=== PATIENT | female | born 1940 | race African-American/Black ===

== ENCOUNTER 2016-10-17 10:37 | Emergency (ER) | payer MEDICARE, BC ==
[~2016-10-17] VITALS: Ht 160 cm; Wt 64.0 kg
[~2016-10-17 10:37] MED LIST: ALPR-340 PO; AMLO10TA80 PO; BENA40TA3 PO; DIAZ5TAB4 PO; EDARBI; NEBI5TAB3 PO; QUET25TA PO
[2016-10-17 11:56] VITALS: BP 134/72
== END 2016-10-17 14:23 | disposition home or self-care (01) ==
LOC: ER 13:25
DX: I10 Essential (primary) hypertension (principal); R51 Headache; Z96.659 Presence of unspecified artificial knee joint
CPT/HCPCS: 99283

== ENCOUNTER 2017-03-04 14:08 | Emergency (ER) | payer MEDICARE, BC ==
[~2017-03-04] VITALS: Ht 160 cm; Wt 60.0 kg
[2017-03-04] MEDS ORDERED: TRAMADOL 50MG TABLET PO ONE (14:45)
[2017-03-04 15:17] LABS: HEMATOCRIT. 38.2 % (36.0-48.0); HEMOGLOBIN. 13.2 g/dL (12.0-16.0); MEAN CORPUSCULAR VOLUME 92.8 fL (81.0-99.0); PLATELET 467 x1000/uL (130-400); RED BLOOD CELL COUNT 4.12 mill/uL (4.2-5.4); RED CELL DISTRIBUTION WIDTH 13.4 % (11.6-14.6)
[2017-03-04 15:20] LABS: CARBON DIOXIDE 28 mEq/L (21-32); CHLORIDE 105 mEq/L (98-107)
[2017-03-04 17:05] LABS: ATYPICAL LYMPHOCYTES 3; PLATELET ESTIMATE SLIGHTLY INCREASED
[2017-03-04 17:40] VITALS: BP 139/78
== END 2017-03-04 19:41 | disposition home or self-care (01) ==
LOC: ER 15:30
DX: M17.11 Unilateral primary osteoarthritis, right knee (principal); R35.0 Frequency of micturition; I10 Essential (primary) hypertension; M19.90 Unspecified osteoarthritis, unspecified site; F41.9 Anxiety disorder, unspecified; Z96.652 Presence of left artificial knee joint
CPT/HCPCS: 36415; 73560; 80053; 82962; 85025; 99285

== ENCOUNTER 2017-06-02 11:22 | Emergency (ER) | payer MEDICARE, BC ==
[~2017-06-02] VITALS: Ht 157.5 cm; Wt 61.0 kg
[2017-06-02 11:40] VITALS: BP 147/69
[2017-06-02] MEDS ORDERED: ACETAMINOPHEN 500MG TABLET PO ONE (15:45)
== END 2017-06-02 18:22 | disposition home or self-care (01) ==
LOC: ER 12:43
DX: M17.11 Unilateral primary osteoarthritis, right knee (principal); I10 Essential (primary) hypertension; F03.90 Unspecified dementia, unspecified severity, without behavioral disturbance, psychotic disturbance, mood disturbance, and anxiety; Z96.652 Presence of left artificial knee joint
CPT/HCPCS: 73562; 99284

== ENCOUNTER 2017-06-09 08:47 | Emergency (ER) | payer MEDICARE, BC ==
[~2017-06-09] VITALS: Ht 157.5 cm; Wt 61.0 kg
[2017-06-09] MEDS ORDERED: IBUPROFEN 600MG TABLET PO ONE (11:00)
[2017-06-09 11:17] LABS: CLARITY URINE CLEAR (CLEAR); COLOR URINE YELLOW (YELLOW); GLUCOSE URINE NEGATIVE (NEGATIVE); KETONES URINE NEGATIVE (NEGATIVE); LEUKOCYTE ESTERASE URINE NEGATIVE (NEGATIVE); NITRITE URINE NEGATIVE (NEGATIVE); OCCULT BLOOD URINE NEGATIVE (NEGATIVE); PROTEIN URINE NEGATIVE (NEGATIVE); SPECIFIC GRAVITY URINE 1.013 (1.005-1.030)
[2017-06-09] MEDS ORDERED: CLONIDINE 0.1MG TABLET PO ONE (11:45)
[2017-06-09 12:48] VITALS: BP 165/82
== END 2017-06-09 12:54 | disposition home or self-care (01) ==
LOC: ER 09:32
DX: M17.11 Unilateral primary osteoarthritis, right knee (principal); G89.29 Other chronic pain; I16.0 Hypertensive urgency; I11.9 Hypertensive heart disease without heart failure
CPT/HCPCS: 81003; 99283

== ENCOUNTER 2017-10-08 12:56 | Inpatient (IN) | payer MEDICARE, BC ==
[~2017-10-08] VITALS: Ht 157.5 cm; Wt 51.9 kg
[~2017-10-08 12:56] MED LIST changes: -ALPR-340 PO; -AMLO10TA80 PO; +AZIL40TA PO; -BENA40TA3 PO; -DIAZ5TAB4 PO; -EDARBI; +KDUR10 PO; +NAPR-681 PO; -NEBI5TAB3 PO; +NITR100C11 PO; -QUET25TA PO; +TRAM50TA3 PO
[2017-10-08 15:38] LABS: BASOPHILS % 1.2 % (0.0-2.0); EOSINOPHILS % 1.8 % (0.0-5.0); HEMATOCRIT. 39.3 % (36.0-48.0); HEMOGLOBIN. 13.6 g/dL (12.0-16.0); LYMPHOCYTES % 15.4 % (20.0-50.0); MEAN CORPUSCULAR HEMOGLOBIN 32.6 pg (28.0-32.0); MEAN CORPUSCULAR VOLUME 94.7 fL (81.0-99.0); MEAN PLATELET VOLUME 8.4 fl (7.4-10.4); MONOCYTES % 7.6 % (2.0-8.0); PLATELET 493 x1000/uL (130-400); RED BLOOD CELL COUNT 4.16 mill/uL (4.2-5.4); RED CELL DISTRIBUTION WIDTH 13.7 % (11.6-14.6)
[2017-10-08 15:40] LABS: CHLORIDE 106 mEq/L (98-107)
[2017-10-08 15:44] LABS: INR 1.1; PARTIAL THROMBOPLASTIN TIME 29.2 sec (23.4-31.0); PROTHROMBIN TIME 10.9 sec (9.4-11.6)
[2017-10-08 15:49] LABS: CREATINE KINASE 22 IU/L (26-192)
[2017-10-08 15:51] LABS: CREATINE KINASE MB FRACTION < 0.5 ng/mL (0.5-3.6)
[2017-10-08] MEDS ORDERED: ASPIRIN 81MG TABLET PO ONE (16:00)
[2017-10-08] MEDS ORDERED: ENALAPRIL 2.5MG/2ML VIAL 2ML IV ONE (16:00)
[2017-10-08] MEDS ORDERED: CLONIDINE 0.1MG TABLET PO PRN ×2 (17:00→21:23)
[2017-10-08 17:23] LABS: CLARITY URINE CLOUDY (CLEAR); COLOR URINE YELLOW (YELLOW); KETONES URINE NEGATIVE (NEGATIVE); LEUKOCYTE ESTERASE URINE 1+ (NEGATIVE); NITRITE URINE NEGATIVE (NEGATIVE); OCCULT BLOOD URINE NEGATIVE (NEGATIVE); PH URINE 7.5 (4.5-8.0); PROTEIN URINE NEGATIVE (NEGATIVE); SPECIFIC GRAVITY URINE 1.012 (1.005-1.030)
[2017-10-08 21:00] VITALS: BP 143/71
[2017-10-08 21:05] VITALS: BP 143/71
[2017-10-08] MEDS ORDERED: DIPHENHYDRAMINE 25MG CAPSULE PO PRN (21:17)
[2017-10-08] MEDS ORDERED: NITROGLYCERIN 0.4MG TABLET SL SL PRN (21:24)
[2017-10-08] MEDS ORDERED: TRAMADOL 50MG TABLET PO PRN (21:25)
[2017-10-08] MEDS ORDERED: ZOLPIDEM TARTRATE 5MG TABLET PO PRN (21:25)
[2017-10-08] MEDS ORDERED: MORPHINE SULFATE 4 MG/ML CPJ (NOT FOR IM USE) IV PRN (21:25)
[2017-10-08] MEDS ORDERED: ACETAMINOPHEN 325MG TABLET PO PRN (21:26)
[2017-10-08] MEDS ORDERED: MAGNESIUM/ALUMINUM HYDROXIDE/SIMETHICONE 30ML UDC PO PRN (21:26)
[2017-10-08] MEDS ORDERED: ONDANSETRON HCL 4MG/2ML VIAL IV PRN (21:26)
[2017-10-08] MEDS ORDERED: NA PHOS,M-B/NA PHOS,DI-BA ENEMA 118ML PR PRN (21:26)
[2017-10-08] MEDS ORDERED: DOCUSATE SODIUM 100MG CAPSULE PO PRN (21:27)
[2017-10-08] MEDS ORDERED: IPRATROPIUM/ALBUTEROL 0.5-3(2.5)MG/3ML NEB INH PRN (21:27)
[2017-10-08] MEDS: HYDRALAZINE HCL 50MG TABLET PO SCH (21:58)
[2017-10-08] MEDS: LISINOPRIL 20MG TABLET PO SCH (21:59)
[2017-10-08] MEDS ORDERED: CEFTRIAXONE 1 G PREMIX 50 ML IV SCH (23:00)
[2017-10-09] VITALS: BP 123/72
[2017-10-09 04:00] VITALS: BP 125/68
[2017-10-09] MEDS: HYDRALAZINE HCL 50MG TABLET PO SCH (05:38)
[2017-10-09 07:15] LABS: BASOPHILS % 0.7 % (0.0-2.0); EOSINOPHILS % 1.5 % (0.0-5.0); HEMATOCRIT. 35.2 % (36.0-48.0); HEMOGLOBIN. 12.1 g/dL (12.0-16.0); MEAN CORPUSCULAR HEMOGLOBIN 32.7 pg (28.0-32.0); MEAN CORPUSCULAR VOLUME 95.3 fL (81.0-99.0); MEAN PLATELET VOLUME 8.8 fl (7.4-10.4); MONOCYTES % 8.2 % (2.0-8.0); NEUTROPHILS % 75.6 % (40.0-76.0); PLATELET 430 x1000/uL (130-400); RED CELL DISTRIBUTION WIDTH 13.7 % (11.6-14.6)
[2017-10-09 08:00] VITALS: BP 106/52
[2017-10-09] MEDS ORDERED: ENOXAPARIN 40MG/0.4ML SYR SUBCUT SCH (09:00)
[2017-10-09] MEDS ORDERED: PANTOPRAZOLE SODIUM 40 MG/VIAL IV SCH (09:00)
[2017-10-09] MEDS: LISINOPRIL 20MG TABLET PO SCH (09:00)
[2017-10-09] MEDS ORDERED: ASPIRIN 325MG EC TABLET PO SCH (09:00)
[2017-10-09 09:02] LABS: CHLORIDE 106 mEq/L (98-107)
[2017-10-09 09:10] LABS: LDL CHOLESTEROL 78 mg/dL (5-100)
[2017-10-09 09:12] LABS: CREATINE KINASE 23 IU/L (26-192); CREATINE KINASE MB FRACTION < 0.5 ng/mL (0.5-3.6)
[2017-10-09 09:13] LABS: HDL CHOLESTEROL 40 mg/dL (40-59)
[2017-10-09] MEDS ORDERED: NON FORMULARY PATIENT HOME MED EA XX SCH (09:15)
[2017-10-09] MEDS ORDERED: POTASSIUM CHLORIDE 20MEQ TABLET SR PO SCH (09:15)
[2017-10-09 11:44] VITALS: BP 136/64
[2017-10-09 12:00] VITALS: BP 136/64
[2017-10-09] MEDS ORDERED: ZOLPIDEM TARTRATE 5MG TABLET PO PRN (21:00)
== END 2017-10-09 12:29 | disposition home or self-care (01) | DRG 392 ==
LOC: ER 12:56 → 7WST 16:51 → SUPCPDRO 16:53 → ENRESERV 18:26
PROVIDERS: ADMIT Internal Medicine; ATTEND Internal Medicine
DX: K21.9 Gastro-esophageal reflux disease without esophagitis (principal); F03.90 Unspecified dementia, unspecified severity, without behavioral disturbance, psychotic disturbance, mood disturbance, and anxiety; N12 Tubulo-interstitial nephritis, not specified as acute or chronic; E87.6 Hypokalemia; I25.10 Atherosclerotic heart disease of native coronary artery without angina pectoris; G47.00 Insomnia, unspecified; I10 Essential (primary) hypertension; M19.90 Unspecified osteoarthritis, unspecified site; Z96.659 Presence of unspecified artificial knee joint; Z90.49 Acquired absence of other specified parts of digestive tract; R79.89 Other specified abnormal findings of blood chemistry; Z79.899 Other long term (current) drug therapy
CPT/HCPCS: 36415; 74022; 80053; 80061; 81003; 82550; 82553; 83036; 83690; 83735; 83880; 84484; 85025; 85379; 85610; 85730; 87086; 93005; 93970; 96374; 97162; 99291; C9113; J0696; J1650; J3490; Q0163

== ENCOUNTER 2018-03-09 16:53 | Emergency (ER) | payer MEDICARE, BC ==
[~2018-03-09] VITALS: Ht 160 cm; Wt 73.0 kg
[~2018-03-09 16:53] MED LIST changes: +AMLO2.5T45 PO; -AZIL40TA PO; +MEMA10TA2 PO; -NAPR-681 PO; +NEBI5TAB3 PO; -NITR100C11 PO; +OLME20TA14 PO; +PRAV40TA58 PO; +SOLI5TAB PO
[2018-03-09] MEDS ORDERED: SODIUM CHLORIDE 0.9% 500 ML IV ONE (17:43)
[2018-03-09] MEDS ORDERED: LORAZEPAM 0.5MG TABLET PO ONE (17:45)
[2018-03-09 18:40] LABS: BASOPHILS % 1.1 % (0.0-2.0); EOSINOPHILS % 0.9 % (0.0-5.0); HEMOGLOBIN. 12.8 g/dL (12.0-16.0); LYMPHOCYTES % 22.3 % (20.0-50.0); MEAN CORPUSCULAR HEMOGLOBIN 33.4 pg (28.0-32.0); MEAN PLATELET VOLUME 8.6 fl (7.4-10.4); MONOCYTES % 6.8 % (2.0-8.0); NEUTROPHILS % 68.9 % (40.0-76.0); PLATELET 570 x1000/uL (130-400); RED BLOOD CELL COUNT 3.83 mill/uL (4.2-5.4); RED CELL DISTRIBUTION WIDTH 13.4 % (11.6-14.6)
[2018-03-09 18:44] LABS: CHLORIDE 104 mEq/L (98-107)
[2018-03-09] MEDS ORDERED: POTASSIUM CHLORIDE 20MEQ TABLET SR PO ONE (19:15)
[2018-03-09 19:56] LABS: CLARITY URINE CLEAR (CLEAR); COLOR URINE YELLOW (YELLOW); KETONES URINE NEGATIVE (NEGATIVE); LEUKOCYTE ESTERASE URINE 2+ (NEGATIVE); NITRITE URINE NEGATIVE (NEGATIVE); OCCULT BLOOD URINE NEGATIVE (NEGATIVE); PH URINE 6.5 (4.5-8.0); PROTEIN URINE NEGATIVE (NEGATIVE); SPECIFIC GRAVITY URINE 1.008 (1.005-1.030); UROBILINOGEN URINE 0.2 E.U./dL (0.2-1.0)
[2018-03-09] MEDS ORDERED: CEFTRIAXONE 1 G PREMIX 50 ML IV ONE (20:15)
[2018-03-09 21:56] VITALS: BP 179/74
== END 2018-03-09 22:01 | disposition home or self-care (01) ==
LOC: ER 16:53
DX: N39.0 Urinary tract infection, site not specified (principal); E86.0 Dehydration; E87.6 Hypokalemia; F03.90 Unspecified dementia, unspecified severity, without behavioral disturbance, psychotic disturbance, mood disturbance, and anxiety; R41.3 Other amnesia; Z79.899 Other long term (current) drug therapy
CPT/HCPCS: 36415; 71045; 80053; 81003; 83735; 84484; 85025; 93005; 96361; 96365; 96366; 99285; J0696; J7030; J7040

== ENCOUNTER 2018-09-13 13:58 | Emergency (ER) | payer BC, MEDICARE ==
[~2018-09-13] VITALS: Ht 160 cm; Wt 59.0 kg
[~2018-09-13 13:58] MED LIST changes: +NAPR-681 MT; +NITR100C MT; +QUET25TA34 MT; -SOLI5TAB PO; -TRAM50TA3 PO
[2018-09-13 18:13] VITALS: BP 131/78
== END 2018-09-13 21:13 | disposition left against medical advice (07) ==
LOC: ER 13:58
DX: M25.561 Pain in right knee (principal); M54.5 Low back pain; Z53.21 Procedure and treatment not carried out due to patient leaving prior to being seen by health care provider

== ENCOUNTER 2018-10-29 16:29 | Inpatient (IN) | payer MEDICARE, BC ==
[~2018-10-29] VITALS: Ht 160 cm; Wt 59.0 kg
[2018-10-29 17:13] LABS: BASOPHILS % 1.1 % (0.0-2.0); EOSINOPHILS % 0.4 % (0.0-5.0); HEMATOCRIT. 38.8 % (36.0-48.0); HEMOGLOBIN. 13.5 g/dL (12.0-16.0); LYMPHOCYTES % 13.5 % (20.0-50.0); MEAN CORPUSCULAR HEMOGLOBIN 32.1 pg (28.0-32.0); MEAN PLATELET VOLUME 7.8 fl (7.4-10.4); MONOCYTES % 6.8 % (2.0-8.0); NEUTROPHILS % 78.2 % (40.0-76.0); PLATELET 700 x1000/uL (130-400); RED BLOOD CELL COUNT 4.22 mill/uL (4.2-5.4); RED CELL DISTRIBUTION WIDTH 14.8 % (11.6-14.6)
[2018-10-29 17:18] LABS: CHLORIDE 106 mEq/L (98-107)
[2018-10-29 17:54] LABS: BG BASE EXCESS 0.3 mmol/L (-2.0-2.0); BG CARBOXYHEMOGLOBIN 0.3 % (0.5-1.5); BG DEOXYHEMOGLOBIN 1.9 % (0.0-5.0); BG FRACTION INSPIRED OXYGEN 21; BG HCO3 ACT 17.8 mmol/L (22.0-26.0); BG METHEMOGLOBIN 0.3 % (0.0-1.5); BG OXYGEN SATURATION 98.1 % (92.0-98.5); BG OXYHEMOGLOBIN 97.5 % (94.0-97.0); BG PCO2 15.7 mmHg (35.0-45.0); BG PH 7.672 (7.350-7.450); BG PO2 100.4 mmHg (75.0-100.0); BG SAMPLE SITE RIGHT BRACHIAL; BG TOTAL HEMOGLOBIN 13.5 g/dL (12.0-18.0); BG VENT MODE ROOM AIR
[2018-10-29] MEDS ORDERED: LORAZEPAM 2MG/ML CPJ IV ONE (18:00)
[2018-10-29] MEDS ORDERED: SODIUM CHLORIDE 0.9% 500 ML IV ONE (19:30)
[2018-10-29] MEDS ORDERED: IOHEXOL-300 100 ML BOTTLE ONE (19:31)
[2018-10-29] MEDS ORDERED: GUAIFENESIN 200MG/10ML SUGAR FREE UDC PO PRN (20:15)
[2018-10-29] MEDS ORDERED: DOCUSATE SODIUM 100MG CAPSULE PO PRN (20:15)
[2018-10-29] MEDS ORDERED: HYDROCODONE/ACETAMINOPHEN 5/325MG TABLET PO PRN (20:15)
[2018-10-29] MEDS ORDERED: CLONIDINE 0.1MG TABLET PO PRN (20:15)
[2018-10-29] MEDS ORDERED: MAGNESIUM/ALUMINUM HYDROXIDE/SIMETHICONE 30ML UDC PO PRN (20:15)
[2018-10-29] MEDS ORDERED: ONDANSETRON HCL 4MG/2ML INJ IV PRN (20:15)
[2018-10-29] MEDS ORDERED: LORAZEPAM 2MG/ML CPJ IV PRN (20:15)
[2018-10-29] MEDS ORDERED: ACETAMINOPHEN 325MG TABLET PO PRN (20:15)
[2018-10-29] MEDS ORDERED: AMLODIPINE 2.5MG TABLET PO NR (20:30)
[2018-10-29] MEDS ORDERED: MEMANTINE HCL 10MG TABLET PO NR (20:31)
[2018-10-29] MEDS ORDERED: POTASSIUM CHLORIDE 20MEQ TABLET SR PO NR (20:32)
[2018-10-29] MEDS ORDERED: DIAZEPAM 5 MG TABLET PO ONE (20:45)
[2018-10-29 22:00] VITALS: BP 152/80
[2018-10-29] MEDS ORDERED: NA PHOS,M-B/NA PHOS,DI-BA ENEMA 118ML PR PRN (22:00)
[2018-10-29 23:05] LABS: CLARITY URINE CLEAR (CLEAR); COLOR URINE YELLOW (YELLOW); KETONES URINE TRACE (NEGATIVE); LEUKOCYTE ESTERASE URINE NEGATIVE (NEGATIVE); NITRITE URINE NEGATIVE (NEGATIVE); OCCULT BLOOD URINE NEGATIVE (NEGATIVE); PH URINE 7.5 (4.5-8.0); PROTEIN URINE NEGATIVE (NEGATIVE); SPECIFIC GRAVITY URINE 1.059 (1.005-1.030)
[2018-10-30] VITALS: BP 127/87
[2018-10-30] MEDS ORDERED: DEXTROSE 50% WATER 50ML SYRINGE IV PRN (01:15)
[2018-10-30 04:00] VITALS: BP 141/74
[2018-10-30] MEDS: BLOOD SUGAR DIAGNOSTIC STRIP TEST SCH ×4 (06:58→21:00)
[2018-10-30] MEDS: INSULIN LISPRO 100 UNITS/ML SUBCUT SCH ×4 (06:58→21:18)
[2018-10-30 06:59] LABS: HEMATOCRIT. 35.6 % (36.0-48.0); HEMOGLOBIN. 12.3 g/dL (12.0-16.0); MEAN CORPUSCULAR HEMOGLOBIN 32.2 pg (28.0-32.0); MEAN PLATELET VOLUME 7.8 fl (7.4-10.4); MONOCYTES % 7.3 % (2.0-8.0); NEUTROPHILS % 74.7 % (40.0-76.0); PLATELET 570 x1000/uL (130-400); RED BLOOD CELL COUNT 3.83 mill/uL (4.2-5.4); RED CELL DISTRIBUTION WIDTH 14.8 % (11.6-14.6)
[2018-10-30 07:24] LABS: CHLORIDE 112 mEq/L (98-107)
[2018-10-30 08:00] VITALS: BP 137/78
[2018-10-30] MEDS ORDERED: AMLODIPINE 2.5MG TABLET PO SCH (09:00)
[2018-10-30] MEDS: QUETIAPINE FUMARATE 25MG TABLET PO SCH (09:54)
[2018-10-30] MEDS: MEMANTINE HCL 10MG TABLET PO SCH ×2 (09:54→20:57)
[2018-10-30] MEDS: ENOXAPARIN 30MG/0.3ML SYR SUBCUT SCH (09:56)
[2018-10-30] MEDS: POTASSIUM CHLORIDE 20MEQ TABLET SR PO SCH (09:56)
[2018-10-30] MEDS ORDERED: POTASSIUM CHLORIDE 20MEQ TABLET SR PO NR (10:15)
[2018-10-30 10:49] LABS: BG BASE EXCESS 1.7 mmol/L (-2.0-2.0); BG CARBOXYHEMOGLOBIN 0.3 % (0.5-1.5); BG FRACTION INSPIRED OXYGEN 21; BG METHEMOGLOBIN 0.6 % (0.0-1.5); BG OXYHEMOGLOBIN 96.1 % (94.0-97.0); BG PCO2 30.8 mmHg (35.0-45.0); BG PO2 95.4 mmHg (75.0-100.0); BG SAMPLE SITE RIGHT RADIAL; BG TOTAL HEMOGLOBIN 12.6 g/dL (12.0-18.0); BG VENT MODE ROOM AIR
[2018-10-30] MEDS ORDERED: METHYL SALICYLATE/MENTHOL CREAM 85GM TOP PRN (12:00)
[2018-10-30] MEDS ORDERED: IPRATROPIUM/ALBUTEROL 0.5-3(2.5)MG/3ML NEB HHN PRN (13:15)
[2018-10-30 16:00] VITALS: BP 144/59
[2018-10-30 17:21] LABS: CLARITY URINE CLEAR (CLEAR); COLOR URINE YELLOW (YELLOW); KETONES URINE NEGATIVE (NEGATIVE); LEUKOCYTE ESTERASE URINE NEGATIVE (NEGATIVE); NITRITE URINE NEGATIVE (NEGATIVE); OCCULT BLOOD URINE NEGATIVE (NEGATIVE); PH URINE 7.5 (4.5-8.0); PROTEIN URINE NEGATIVE (NEGATIVE)
[2018-10-30] MEDS: NAPROXEN 375MG TABLET PO SCH (17:52)
[2018-10-30 20:00] VITALS: BP_SYST 143; BP_SYST 146; BP_DIAS 65; BP_DIAS 75
[2018-10-30] MEDS: AMLODIPINE 5MG TABLET PO SCH (20:58)
[2018-10-31] VITALS: BP 146/75
[2018-10-31 04:00] VITALS: BP 145/76
[2018-10-31] MEDS: BLOOD SUGAR DIAGNOSTIC STRIP TEST SCH ×4 (06:08→20:39)
[2018-10-31] MEDS: INSULIN LISPRO 100 UNITS/ML SUBCUT SCH ×4 (06:45→20:39)
[2018-10-31 07:05] LABS: BASOPHILS % 1.4 % (0.0-2.0); EOSINOPHILS % 2.8 % (0.0-5.0); HEMATOCRIT. 36.3 % (36.0-48.0); HEMOGLOBIN. 12.7 g/dL (12.0-16.0); LYMPHOCYTES % 23.9 % (20.0-50.0); MEAN CORPUSCULAR HEMOGLOBIN 32.5 pg (28.0-32.0); MEAN CORPUSCULAR VOLUME 92.8 fL (81.0-99.0); MEAN PLATELET VOLUME 7.9 fl (7.4-10.4); MONOCYTES % 7.8 % (2.0-8.0); NEUTROPHILS % 64.1 % (40.0-76.0); PLATELET 575 x1000/uL (130-400); RED BLOOD CELL COUNT 3.91 mill/uL (4.2-5.4); RED CELL DISTRIBUTION WIDTH 14.6 % (11.6-14.6)
[2018-10-31 07:20] LABS: CHLORIDE 109 mEq/L (98-107)
[2018-10-31 08:00] VITALS: BP 151/70
[2018-10-31] MEDS: POTASSIUM CHLORIDE 20MEQ TABLET SR PO SCH (09:02)
[2018-10-31] MEDS: MEMANTINE HCL 10MG TABLET PO SCH (09:02)
[2018-10-31] MEDS: QUETIAPINE FUMARATE 25MG TABLET PO SCH (09:03)
[2018-10-31] MEDS: AMLODIPINE 5MG TABLET PO SCH ×2 (09:03→20:34)
[2018-10-31] MEDS: NAPROXEN 375MG TABLET PO SCH ×2 (09:04→17:53)
[2018-10-31] MEDS: ENOXAPARIN 30MG/0.3ML SYR SUBCUT SCH (09:05)
[2018-10-31] MEDS ORDERED: POTASSIUM CHLORIDE 20MEQ TABLET SR PO NR (10:45)
[2018-10-31 12:00] VITALS: BP 135/72
[2018-10-31] MEDS ORDERED: POTASSIUM CHLORIDE 20MEQ TABLET SR PO SCH (15:45)
[2018-10-31 16:00] VITALS: BP 135/63
[2018-10-31 20:00] VITALS: BP 139/60
[2018-11-01] VITALS: BP_SYST 130; BP_SYST 139; BP_DIAS 62; BP_DIAS 82
[2018-11-01 04:00] VITALS: BP 118/77
[2018-11-01] MEDS: INSULIN LISPRO 100 UNITS/ML SUBCUT SCH ×2 (06:23→11:57)
[2018-11-01] MEDS: BLOOD SUGAR DIAGNOSTIC STRIP TEST SCH ×2 (06:23→11:57)
[2018-11-01 07:59] LABS: CHLORIDE 112 mEq/L (98-107)
[2018-11-01 08:00] VITALS: BP 156/97
[2018-11-01] MEDS: NAPROXEN 375MG TABLET PO SCH (08:24)
[2018-11-01] MEDS: POTASSIUM CHLORIDE 20MEQ TABLET SR PO SCH (08:24)
[2018-11-01] MEDS: AMLODIPINE 5MG TABLET PO SCH (08:24)
[2018-11-01] MEDS: ENOXAPARIN 30MG/0.3ML SYR SUBCUT SCH (08:25)
[2018-11-01] MEDS ORDERED: MEMANTINE HCL 10MG TABLET PO SCH ×2 (09:00→16:30)
[2018-11-01 10:48] VITALS: BP_SYST 136; BP_SYST 156; BP_DIAS 77; BP_DIAS 97
[2018-11-01 12:00] VITALS: BP 136/77
[2018-11-01] MEDS ORDERED: QUETIAPINE FUMARATE 25MG TABLET PO SCH (21:00)
== END 2018-11-01 12:28 | disposition home health service (06) | DRG 682 ==
LOC: ER 16:29 → 8WST 19:27 → EDBEDREQ 19:35 → EDBEDREQTM 19:35 → ENRESERV 20:42 → 8WST 22:44
PROVIDERS: ADMIT Hospitalist; ATTEND Hospitalist
DX: N17.9 Acute kidney failure, unspecified (principal); J96.00 Acute respiratory failure, unspecified whether with hypoxia or hypercapnia; E87.3 Alkalosis; N39.0 Urinary tract infection, site not specified; M17.0 Bilateral primary osteoarthritis of knee; E11.649 Type 2 diabetes mellitus with hypoglycemia without coma; E78.00 Pure hypercholesterolemia, unspecified; E87.6 Hypokalemia; F03.90 Unspecified dementia, unspecified severity, without behavioral disturbance, psychotic disturbance, mood disturbance, and anxiety; F41.9 Anxiety disorder, unspecified; G89.29 Other chronic pain; I10 Essential (primary) hypertension; Z96.652 Presence of left artificial knee joint; I25.119 Atherosclerotic heart disease of native coronary artery with unspecified angina pectoris; D47.3 Essential (hemorrhagic) thrombocythemia; E78.5 Hyperlipidemia, unspecified; Z79.82 Long term (current) use of aspirin; Z79.899 Other long term (current) drug therapy; Z90.49 Acquired absence of other specified parts of digestive tract
CPT/HCPCS: 36415; 36600; 71045; 71275; 73562; 82375; 82805; 82962; 83036; 83735; 83880; 84132; 84484; 85379; 93005; 93970; 97162; 99285; J1650; J1815; J2060; J7040; Q9967

== ENCOUNTER 2019-02-09 13:42 | Emergency (ER) | payer MEDICARE, BC ==
[~2019-02-09] VITALS: Ht 160 cm; Wt 64.0 kg
[~2019-02-09 13:42] MED LIST changes: +OLME20TA13 PO; -OLME20TA14 PO
[2019-02-09 15:55] LABS: HEMATOCRIT. 37.5 % (36.0-48.0); HEMOGLOBIN. 13.5 g/dL (12.0-16.0); MEAN CORPUSCULAR HEMOGLOBIN 33.1 pg (28.0-32.0); MEAN CORPUSCULAR VOLUME 92.3 fL (81.0-99.0); MEAN PLATELET VOLUME 8.3 fl (7.4-10.4); PLATELET 612 x1000/uL (130-400); RED BLOOD CELL COUNT 4.06 mill/uL (4.2-5.4); RED CELL DISTRIBUTION WIDTH 13.9 % (11.6-14.6)
[2019-02-09 16:03] LABS: CHLORIDE 108 mEq/L (98-107)
[2019-02-09 16:29] LABS: CLARITY URINE CLEAR (CLEAR); COLOR URINE YELLOW (YELLOW); KETONES URINE NEGATIVE (NEGATIVE); LEUKOCYTE ESTERASE URINE NEGATIVE (NEGATIVE); NITRITE URINE NEGATIVE (NEGATIVE); OCCULT BLOOD URINE NEGATIVE (NEGATIVE); PH URINE 6.5 (4.5-8.0); PROTEIN URINE NEGATIVE (NEGATIVE); UROBILINOGEN URINE 0.2 E.U./dL (0.2-1.0)
[2019-02-09 16:38] LABS: PLATELET ESTIMATE INCREASED
[2019-02-09] MEDS ORDERED: POTASSIUM CHLORIDE 20MEQ/PACKET PO NR (17:15)
[2019-02-09 18:13] VITALS: BP 167/90
== END 2019-02-09 18:16 | disposition home or self-care (01) ==
LOC: ER 13:42
DX: F32.9 Major depressive disorder, single episode, unspecified (principal); E87.6 Hypokalemia; R79.89 Other specified abnormal findings of blood chemistry; D47.3 Essential (hemorrhagic) thrombocythemia; I10 Essential (primary) hypertension; E11.9 Type 2 diabetes mellitus without complications; I25.10 Atherosclerotic heart disease of native coronary artery without angina pectoris; F03.90 Unspecified dementia, unspecified severity, without behavioral disturbance, psychotic disturbance, mood disturbance, and anxiety; Z90.89 Acquired absence of other organs; Z47.1 Aftercare following joint replacement surgery
CPT/HCPCS: 36415; 71045; 83880; 84484; 93005; 99284

== ENCOUNTER 2019-02-11 18:05 | Emergency (ER) | payer MEDICARE, BC ==
[~2019-02-11] VITALS: Ht 160 cm; Wt 62.0 kg
[2019-02-11 21:56] LABS: BASOPHILS % 1.5 % (0.0-2.0); EOSINOPHILS % 3.3 % (0.0-5.0); HEMATOCRIT. 37.9 % (36.0-48.0); HEMOGLOBIN. 12.9 g/dL (12.0-16.0); LYMPHOCYTES % 20.8 % (20.0-50.0); MEAN CORPUSCULAR HEMOGLOBIN 32.1 pg (28.0-32.0); MEAN PLATELET VOLUME 8.7 fl (7.4-10.4); MONOCYTES % 7.8 % (2.0-8.0); NEUTROPHILS % 66.6 % (40.0-76.0); PLATELET 594 x1000/uL (130-400); RED BLOOD CELL COUNT 4.03 mill/uL (4.2-5.4); RED CELL DISTRIBUTION WIDTH 14.2 % (11.6-14.6)
[2019-02-11 21:59] LABS: CHLORIDE 110 mEq/L (98-107)
[2019-02-11 22:06] LABS: CLARITY URINE CLEAR (CLEAR); COLOR URINE YELLOW (YELLOW); KETONES URINE NEGATIVE (NEGATIVE); LEUKOCYTE ESTERASE URINE TRACE (NEGATIVE); NITRITE URINE NEGATIVE (NEGATIVE); OCCULT BLOOD URINE NEGATIVE (NEGATIVE); PROTEIN URINE NEGATIVE (NEGATIVE)
[2019-02-11 23:13] VITALS: BP 144/78
== END 2019-02-11 23:13 | disposition home or self-care (01) ==
LOC: ER 18:05
DX: R07.89 Other chest pain (principal)
CPT/HCPCS: 36415; 71045; 81003; 84484; 93005; 99284

== ENCOUNTER 2019-03-29 13:03 | Emergency (ER) | payer OTHER, BC ==
[~2019-03-29] VITALS: Ht 157.5 cm; Wt 61.0 kg
[2019-03-29 14:54] LABS: CHLORIDE 104 mEq/L (98-107)
[2019-03-29 14:58] LABS: BASOPHILS % 0.5 % (0.0-2.0); EOSINOPHILS % 0.5 % (0.0-5.0); HEMATOCRIT. 39.5 % (36.0-48.0); HEMOGLOBIN. 13.7 g/dL (12.0-16.0); LYMPHOCYTES % 10.1 % (20.0-50.0); MEAN CORPUSCULAR HEMOGLOBIN 32.7 pg (28.0-32.0); MEAN CORPUSCULAR VOLUME 94.7 fL (81.0-99.0); MEAN PLATELET VOLUME 8.7 fl (7.4-10.4); MONOCYTES % 6.3 % (2.0-8.0); NEUTROPHILS % 82.6 % (40.0-76.0); PLATELET 704 x1000/uL (130-400); RED BLOOD CELL COUNT 4.17 mill/uL (4.2-5.4); RED CELL DISTRIBUTION WIDTH 14.4 % (11.6-14.6)
[2019-03-29 15:04] LABS: CREATINE KINASE 88 IU/L (26-192)
[2019-03-29] MEDS ORDERED: POTASSIUM CHLORIDE 20MEQ TABLET SR PO ONE (15:30)
[2019-03-29 15:33] LABS: CLARITY URINE CLEAR (CLEAR); COLOR URINE YELLOW (YELLOW); KETONES URINE NEGATIVE (NEGATIVE); LEUKOCYTE ESTERASE URINE 2+ (NEGATIVE); NITRITE URINE NEGATIVE (NEGATIVE); OCCULT BLOOD URINE NEGATIVE (NEGATIVE); PROTEIN URINE NEGATIVE (NEGATIVE); SPECIFIC GRAVITY URINE 1.011 (1.005-1.030); UROBILINOGEN URINE 0.2 E.U./dL (0.2-1.0)
[2019-03-29 17:50] VITALS: BP 156/78
== END 2019-03-29 17:50 | disposition home or self-care (01) ==
LOC: ER 13:03
DX: N39.0 Urinary tract infection, site not specified (principal); M79.18 Myalgia, other site; I10 Essential (primary) hypertension; Z60.2 Problems related to living alone
CPT/HCPCS: 36415; 71045; 81003; 82550; 84484; 93005; 99284

== ENCOUNTER 2019-07-24 14:06 | Emergency (ER) | payer MEDICARE, BC ==
[~2019-07-24] VITALS: Ht 160 cm; Wt 57.0 kg
[2019-07-24 16:06] LABS: HEMATOCRIT. 39.4 % (36.0-48.0); HEMOGLOBIN. 13.5 g/dL (12.0-16.0); MEAN CORPUSCULAR HEMOGLOBIN 32.6 pg (28.0-32.0); MEAN CORPUSCULAR VOLUME 95.1 fL (81.0-99.0); MEAN PLATELET VOLUME 8.3 fl (7.4-10.4); PLATELET 855 x1000/uL (130-400); RED BLOOD CELL COUNT 4.14 mill/uL (4.2-5.4); RED CELL DISTRIBUTION WIDTH 14.1 % (11.6-14.6)
[2019-07-24 16:08] LABS: CHLORIDE 107 mEq/L (98-107)
[2019-07-24 17:01] VITALS: BP 133/67
[2019-07-24 17:23] LABS: PLATELET ESTIMATE INCREAS
== END 2019-07-24 17:02 | disposition home or self-care (01) ==
LOC: ER 15:06
DX: R07.89 Other chest pain (principal); I10 Essential (primary) hypertension
CPT/HCPCS: 36415; 71045; 80053; 84484; 85025; 93005; 99284

== ENCOUNTER 2019-08-16 22:20 | Emergency (ER) | payer MEDICARE, BC ==
[~2019-08-16] VITALS: Ht 160 cm; Wt 51.0 kg
[2019-08-16 22:39] VITALS: BP 125/76
== END 2019-08-17 01:03 | disposition left against medical advice (07) ==
LOC: ER 22:20
DX: R19.7 Diarrhea, unspecified (principal); Z53.21 Procedure and treatment not carried out due to patient leaving prior to being seen by health care provider

== ENCOUNTER 2020-01-12 19:30 | Inpatient (IN) | payer MEDICARE, BC ==
[~2020-01-12] VITALS: Ht 160 cm; Wt 50.3 kg
[2020-01-12] MEDS ORDERED: ONDANSETRON HCL 4MG/2ML INJ IV STA (20:33)
[2020-01-12] MEDS ORDERED: SODIUM CHLORIDE 0.9% 500 ML IV ONE ×2 (20:45→23:15)
[2020-01-12 21:56] LABS: CHLORIDE 109 mEq/L (98-107)
[2020-01-12 21:57] LABS: BASOPHILS % 0.7 % (0.0-2.0); EOSINOPHILS % 0.9 % (0.0-5.0); HEMATOCRIT. 31.9 % (36.0-48.0); HEMOGLOBIN. 11.3 g/dL (12.0-16.0); LYMPHOCYTES % 12.7 % (20.0-50.0); MEAN CORPUSCULAR HEMOGLOBIN 42.4 pg (28.0-32.0); MEAN CORPUSCULAR VOLUME 120.2 fL (81.0-99.0); MEAN PLATELET VOLUME 7.9 fl (7.4-10.4); MONOCYTES % 8.2 % (2.0-8.0); NEUTROPHILS % 77.5 % (40.0-76.0); PLATELET 232 x1000/uL (130-400); RED BLOOD CELL COUNT 2.66 mill/uL (4.2-5.4); RED CELL DISTRIBUTION WIDTH 14.5 % (11.6-14.6)
[2020-01-12 22:00] LABS: ETHANOL BLOOD < 10 mg/dL
[2020-01-12 22:12] LABS: PLATELET ESTIMATE NORMAL
[2020-01-12 22:29] LABS: CLARITY URINE CLEAR (CLEAR); COLOR URINE YELLOW (YELLOW); KETONES URINE NEGATIVE (NEGATIVE); LEUKOCYTE ESTERASE URINE NEGATIVE (NEGATIVE); NITRITE URINE NEGATIVE (NEGATIVE); OCCULT BLOOD URINE NEGATIVE (NEGATIVE); PH URINE 6.5 (4.5-8.0); PROTEIN URINE NEGATIVE (NEGATIVE)
[2020-01-12 22:41] LABS: METHADONE URINE SCREEN NEGATIVE (NEGATIVE); OPIATES URINE SCREEN NEGATIVE (NEGATIVE); PHENCYCLIDINE URINE SCREEN NEGATIVE (NEGATIVE)
[2020-01-12 22:42] LABS: *AMPHETAMINES SCREEN URINE NEGATIVE (NEGATIVE); *BARBITURATES SCREEN URINE NEGATIVE (NEGATIVE); *BENZODIAZEPINES SCREEN URINE NEGATIVE (NEGATIVE); *COCAINE SCREEN URINE NEGATIVE (NEGATIVE); CANNABINOID URINE SCREEN NEGATIVE (NEGATIVE)
[2020-01-13] MEDS ORDERED: ACETAMINOPHEN 650MG/20.3ML UDC PO ONE
[2020-01-13] MEDS ORDERED: IBUPROFEN 400MG TABLET PO ONE
[2020-01-13 05:00] VITALS: BP 164/84
[2020-01-13] MEDS ORDERED: DOCUSATE SODIUM 100MG CAPSULE PO PRN (05:00)
[2020-01-13] MEDS ORDERED: ONDANSETRON HCL 4MG/2ML INJ IV PRN (05:00)
[2020-01-13] MEDS ORDERED: GUAIFENESIN 200MG/10ML SUGAR FREE UDC PO PRN (05:00)
[2020-01-13] MEDS ORDERED: ACETAMINOPHEN 325MG TABLET PO PRN (05:00)
[2020-01-13] MEDS ORDERED: MAGNESIUM/ALUMINUM HYDROXIDE/SIMETHICONE 30ML UDC PO PRN (05:00)
[2020-01-13 05:01] VITALS: BP 167/75
[2020-01-13] MEDS: SODIUM CHLORIDE 0.45% 1,000 ML IV SCH ×2 (06:11→22:40)
[2020-01-13] MEDS: CLONIDINE 0.1MG TABLET PO PRN (06:11)
[2020-01-13 07:57] VITALS: BP 164/89
[2020-01-13] MEDS: ENOXAPARIN 30MG/0.3ML SYR SUBCUT SCH (08:13)
[2020-01-13] MEDS: MULTIVITAMINS,THER W-MINERALS TABLET PO SCH (08:13)
[2020-01-13 11:48] VITALS: BP 151/65
[2020-01-13] MEDS: MEGESTROL ACETATE 400 MG/10 ML UDC PO SCH (12:11)
[2020-01-13] MEDS: LIDOCAINE 5% PATCH TOP SCH (13:31)
[2020-01-13 16:00] VITALS: BP 150/75
[2020-01-13] MEDS: QUETIAPINE FUMARATE 25MG TABLET PO SCH ×2 (19:58→20:15)
[2020-01-13] MEDS: ATORVASTATIN CALCIUM 20MG TABLET PO SCH ×2 (19:58→21:00)
[2020-01-13] MEDS: MEMANTINE HCL 5MG TABLET PO SCH ×2 (19:59→20:15)
[2020-01-13] MEDS: AMLODIPINE 5MG TABLET PO SCH ×2 (19:59→21:00)
[2020-01-14 08:00] VITALS: BP 173/91
[2020-01-14] MEDS: MEMANTINE HCL 5MG TABLET PO SCH (08:22)
[2020-01-14] MEDS: MEGESTROL ACETATE 400 MG/10 ML UDC PO SCH ×2 (08:23→08:29)
[2020-01-14] MEDS: AMLODIPINE 5MG TABLET PO SCH (08:23)
[2020-01-14] MEDS: MULTIVITAMINS,THER W-MINERALS TABLET PO SCH (08:23)
[2020-01-14] MEDS: CLONIDINE 0.1MG TABLET PO PRN (08:23)
[2020-01-14] MEDS: ENOXAPARIN 30MG/0.3ML SYR SUBCUT SCH ×2 (08:24→08:29)
[2020-01-14 09:09] LABS: BASOPHILS % 0.4 % (0.0-2.0); EOSINOPHILS % 0.8 % (0.0-5.0); HEMATOCRIT. 29.7 % (36.0-48.0); HEMOGLOBIN. 10.7 g/dL (12.0-16.0); LYMPHOCYTES % 21.5 % (20.0-50.0); MEAN CORPUSCULAR VOLUME 119.7 fL (81.0-99.0); NEUTROPHILS % 66.3 % (40.0-76.0); PLATELET 238 x1000/uL (130-400); RED BLOOD CELL COUNT 2.48 mill/uL (4.2-5.4); RED CELL DISTRIBUTION WIDTH 14.7 % (11.6-14.6)
[2020-01-14 09:13] LABS: CHLORIDE 110 mEq/L (98-107)
[2020-01-14] MEDS: LIDOCAINE 5% PATCH TOP SCH (09:42)
[2020-01-14 12:07] VITALS: BP 146/76
[2020-01-14] MEDS ORDERED: ATORVASTATIN CALCIUM 10MG TABLET PO SCH (21:00)
== END 2020-01-14 12:40 | disposition home or self-care (01) | DRG 391 ==
LOC: ER 19:30 → 8WST 01-13 00:08 → ENRESERV 01-13 03:54 → 8WST 01-13 05:34
PROVIDERS: ADMIT Hospitalist; ATTEND Hospitalist
DX: K29.70 Gastritis, unspecified, without bleeding (principal); G93.41 Metabolic encephalopathy; Z68.1 Body mass index [BMI] 19.9 or less, adult; R29.6 Repeated falls; F03.90 Unspecified dementia, unspecified severity, without behavioral disturbance, psychotic disturbance, mood disturbance, and anxiety; I10 Essential (primary) hypertension; E78.5 Hyperlipidemia, unspecified; E78.00 Pure hypercholesterolemia, unspecified; Z96.659 Presence of unspecified artificial knee joint; R62.7 Adult failure to thrive
CPT/HCPCS: 36415; 71045; 80053; 80305; 80307; 80320; 80329; 81003; 82140; 83605; 83880; 84443; 84484; 85025; 93005; 93970; 97162; 99285; J1650; J2405; J7040; G0480

== ENCOUNTER 2020-02-10 07:31 | Inpatient (IN) | payer MEDICARE, BC ==
[~2020-02-10] VITALS: Ht 160 cm; Wt 52.2 kg
[2020-02-10 09:58] LABS: BASOPHILS % 0.3 % (0.0-2.0); EOSINOPHILS % 0.7 % (0.0-5.0); HEMATOCRIT. 29.3 % (36.0-48.0); HEMOGLOBIN. 10.6 g/dL (12.0-16.0); LYMPHOCYTES % 17.5 % (20.0-50.0); MEAN CORPUSCULAR HEMOGLOBIN 41.9 pg (28.0-32.0); MEAN CORPUSCULAR VOLUME 115.9 fL (81.0-99.0); NEUTROPHILS % 71.5 % (40.0-76.0); PLATELET 296 x1000/uL (130-400); RED BLOOD CELL COUNT 2.53 mill/uL (4.2-5.4); RED CELL DISTRIBUTION WIDTH 13.8 % (11.6-14.6)
[2020-02-10 10:01] LABS: CHLORIDE 104 mEq/L (98-107)
[2020-02-10 10:04] LABS: PROTHROMBIN TIME 10.9 sec (9.6-11.0)
[2020-02-10 10:05] LABS: ETHANOL BLOOD < 10 mg/dL
[2020-02-10] MEDS ORDERED: SODIUM CHLORIDE 0.9% 1,000 ML IV ONE (10:30)
[2020-02-10] MEDS ORDERED: POTASSIUM CHLORIDE 20MEQ TABLET SR PO ONE (10:30)
[2020-02-10 10:44] LABS: PLATELET ESTIMATE NORMAL
[2020-02-10] MEDS ORDERED: AMLODIPINE 5MG TABLET PO ONE (12:30)
[2020-02-10 12:32] LABS: CLARITY URINE CLOUDY (CLEAR); COLOR URINE YELLOW (YELLOW); KETONES URINE NEGATIVE (NEGATIVE); LEUKOCYTE ESTERASE URINE 3+ (NEGATIVE); NITRITE URINE NEGATIVE (NEGATIVE); OCCULT BLOOD URINE NEGATIVE (NEGATIVE); PH URINE 5.5 (4.5-8.0); PROTEIN URINE NEGATIVE (NEGATIVE)
[2020-02-10 12:51] LABS: *BARBITURATES SCREEN URINE NEGATIVE (NEGATIVE); *BENZODIAZEPINES SCREEN URINE NEGATIVE (NEGATIVE); *COCAINE SCREEN URINE NEGATIVE (NEGATIVE)
[2020-02-10 12:52] LABS: METHADONE URINE SCREEN NEGATIVE (NEGATIVE)
[2020-02-10 12:53] LABS: *AMPHETAMINES SCREEN URINE NEGATIVE (NEGATIVE)
[2020-02-10 12:54] LABS: OPIATES URINE SCREEN NEGATIVE (NEGATIVE); PHENCYCLIDINE URINE SCREEN NEGATIVE (NEGATIVE)
[2020-02-10 12:55] LABS: CANNABINOID URINE SCREEN NEGATIVE (NEGATIVE)
[2020-02-10] MEDS ORDERED: DOCUSATE SODIUM 100MG CAPSULE PO PRN (13:00)
[2020-02-10] MEDS ORDERED: MEMANTINE HCL 10MG TABLET PO SCH (13:00)
[2020-02-10] MEDS ORDERED: MAGNESIUM/ALUMINUM HYDROXIDE/SIMETHICONE 30ML UDC PO PRN (13:00)
[2020-02-10] MEDS ORDERED: AMLODIPINE 10MG TABLET PO SCH (13:00)
[2020-02-10] MEDS ORDERED: ONDANSETRON HCL 4MG/2ML INJ IV PRN (13:00)
[2020-02-10] MEDS ORDERED: CEFTRIAXONE 1 G PREMIX 50 ML IV SCH (13:00)
[2020-02-10] MEDS ORDERED: GUAIFENESIN 200MG/10ML SUGAR FREE UDC PO PRN (13:00)
[2020-02-10] MEDS ORDERED: ACETAMINOPHEN 325MG TABLET PO PRN (13:00)
[2020-02-10] MEDS: CLONIDINE 0.1MG TABLET PO PRN ×2 (13:10→21:03)
[2020-02-10] MEDS ORDERED: CEFTRIAXONE 1,000 MG in DEXTROSE 5% WATER 50 ML IV SCH (13:30)
[2020-02-10 14:29] VITALS: BP 164/83
[2020-02-10] MEDS: LORAZEPAM 2MG/ML CPJ IV PRN ×2 (14:38→22:13)
[2020-02-10 16:00] VITALS: BP 164/83
[2020-02-10] MEDS: CEFTRIAXONE 1,000 MG in DEXTROSE 5% WATER 50 ML IV SCH (16:02)
[2020-02-10] MEDS: SODIUM CHLORIDE 0.45% 1,000 ML IV SCH (18:21)
[2020-02-10 20:00] VITALS: BP 168/90
[2020-02-10] MEDS: QUETIAPINE FUMARATE 25MG TABLET PO SCH (21:03)
[2020-02-10] MEDS: MEMANTINE HCL 5MG TABLET PO SCH (21:03)
[2020-02-11] VITALS (8 sets, daily range): BP systolic 106–197; BP diastolic 64–98
[2020-02-11] MEDS: AMLODIPINE 10MG TABLET PO SCH (01:03)
[2020-02-11] MEDS: CLONIDINE 0.1MG TABLET PO PRN (03:27)
[2020-02-11] MEDS: SODIUM CHLORIDE 0.45% 1,000 ML IV SCH ×2 (06:05→23:41)
[2020-02-11 07:43] LABS: BASOPHILS % 0.4 % (0.0-2.0); EOSINOPHILS % 1.5 % (0.0-5.0); HEMATOCRIT. 29.8 % (36.0-48.0); HEMOGLOBIN. 10.6 g/dL (12.0-16.0); MEAN CORPUSCULAR HEMOGLOBIN 41.2 pg (28.0-32.0); MEAN CORPUSCULAR VOLUME 116.2 fL (81.0-99.0); MONOCYTES % 8.2 % (2.0-8.0); NEUTROPHILS % 71.9 % (40.0-76.0); PLATELET 255 x1000/uL (130-400); RED BLOOD CELL COUNT 2.56 mill/uL (4.2-5.4); RED CELL DISTRIBUTION WIDTH 13.9 % (11.6-14.6)
[2020-02-11 07:57] LABS: CHLORIDE 110 mEq/L (98-107)
[2020-02-11] MEDS: MEMANTINE HCL 5MG TABLET PO SCH ×2 (08:59→21:59)
[2020-02-11] MEDS ORDERED: POTASSIUM CHLORIDE 20MEQ/PACKET PO SCH (09:00)
[2020-02-11] MEDS: NEBIVOLOL HCL 5 MG TABLET PO SCH (09:00)
[2020-02-11] MEDS: ENOXAPARIN 30MG/0.3ML SYR SUBCUT SCH (10:21)
[2020-02-11] MEDS: CEFTRIAXONE 1,000 MG in DEXTROSE 5% WATER 50 ML IV SCH (14:33)
[2020-02-11] MEDS: HYDRALAZINE HCL 25MG TABLET PO SCH ×2 (14:33→22:07)
[2020-02-11] MEDS: QUETIAPINE FUMARATE 25MG TABLET PO SCH (21:59)
[2020-02-12] VITALS (7 sets, daily range): BP systolic 112–158; BP diastolic 62–79
[2020-02-12] MEDS: LORAZEPAM 2MG/ML CPJ IV PRN ×2 (00:12→14:15)
[2020-02-12] MEDS: HYDRALAZINE HCL 25MG TABLET PO SCH ×3 (07:01→21:04)
[2020-02-12 07:12] LABS: BASOPHILS % 0.6 % (0.0-2.0); EOSINOPHILS % 1.4 % (0.0-5.0); HEMATOCRIT. 29.2 % (36.0-48.0); HEMOGLOBIN. 10.4 g/dL (12.0-16.0); LYMPHOCYTES % 24.9 % (20.0-50.0); MEAN CORPUSCULAR HEMOGLOBIN 41.4 pg (28.0-32.0); MEAN CORPUSCULAR VOLUME 115.8 fL (81.0-99.0); MEAN PLATELET VOLUME 8.4 fl (7.4-10.4); MONOCYTES % 9.8 % (2.0-8.0); NEUTROPHILS % 63.3 % (40.0-76.0); PLATELET 243 x1000/uL (130-400); RED BLOOD CELL COUNT 2.52 mill/uL (4.2-5.4); RED CELL DISTRIBUTION WIDTH 13.8 % (11.6-14.6)
[2020-02-12 07:25] LABS: CHLORIDE 111 mEq/L (98-107)
[2020-02-12] MEDS: MEMANTINE HCL 5MG TABLET PO SCH ×2 (08:38→21:04)
[2020-02-12] MEDS: ENOXAPARIN 30MG/0.3ML SYR SUBCUT SCH (08:38)
[2020-02-12] MEDS: NEBIVOLOL HCL 5 MG TABLET PO SCH (08:41)
[2020-02-12] MEDS: AMLODIPINE 10MG TABLET PO SCH (08:41)
[2020-02-12] MEDS: POTASSIUM CHLORIDE 20MEQ TABLET SR PO SCH ×2 (10:53→16:42)
[2020-02-12] MEDS: CEFTRIAXONE 1,000 MG in DEXTROSE 5% WATER 50 ML IV SCH (14:10)
[2020-02-12] MEDS: QUETIAPINE FUMARATE 25MG TABLET PO SCH (21:03)
[2020-02-13] VITALS: BP 136/70
[2020-02-13] MEDS: LORAZEPAM 2MG/ML CPJ IV PRN ×2 (01:15→12:39)
[2020-02-13 04:00] VITALS: BP 163/82
[2020-02-13] MEDS: HYDRALAZINE HCL 25MG TABLET PO SCH ×2 (05:13→14:18)
[2020-02-13 06:22] LABS: CHLORIDE 110 mEq/L (98-107)
[2020-02-13 08:00] VITALS: BP 164/87
[2020-02-13] MEDS: ENOXAPARIN 30MG/0.3ML SYR SUBCUT SCH (09:15)
[2020-02-13] MEDS: MEMANTINE HCL 5MG TABLET PO SCH (09:18)
[2020-02-13] MEDS: NEBIVOLOL HCL 5 MG TABLET PO SCH (09:19)
[2020-02-13] MEDS: POTASSIUM CHLORIDE 20MEQ TABLET SR PO SCH (09:19)
[2020-02-13] MEDS: AMLODIPINE 10MG TABLET PO SCH (09:19)
[2020-02-13 12:00] VITALS: BP 158/82
[2020-02-13] MEDS: CEFTRIAXONE 1,000 MG in DEXTROSE 5% WATER 50 ML IV SCH (14:18)
[2020-02-13 15:34] VITALS: BP 149/67
[2020-02-13 15:56] VITALS: BP 149/67
== END 2020-02-13 16:45 | disposition home health service (06) | DRG 70 ==
LOC: ER 07:31 → EDBEDREQ 09:57 → 6EST 10:57 → EDBEDREQ 11:00 → EDBEDREQSVC 11:00 → ENRESERV 12:38 → 6EST 14:06 → 5WST 23:50
PROVIDERS: ADMIT Hospitalist; ATTEND Hospitalist
DX: G93.40 Encephalopathy, unspecified (principal); N17.0 Acute kidney failure with tubular necrosis; N39.0 Urinary tract infection, site not specified; F03.90 Unspecified dementia, unspecified severity, without behavioral disturbance, psychotic disturbance, mood disturbance, and anxiety; E78.5 Hyperlipidemia, unspecified; E86.0 Dehydration; E87.6 Hypokalemia; I10 Essential (primary) hypertension; Z96.659 Presence of unspecified artificial knee joint; Z79.899 Other long term (current) drug therapy
CPT/HCPCS: 36415; 71045; 80053; 80305; 80320; 81003; 82962; 83735; 84484; 85025; 93005; 93970; 99285; J0696; J1650; J2060; J7030; J7060; G0480